=== PATIENT | male | born 1985 | race Caucasian/White ===

== ENCOUNTER 2020-09-08 13:42 | Emergency (ER) | payer OTHER, SELFPAY ==
[2020-09-08 15:21] VITALS: BP 144/82; PULSE 88; RESP 16; TEMP 37.1; O2SAT 98; BMI 42.7
--- NOTE | 2020-09-08 16:19 | ED.WOUNDLAC ---
HPI - Wound/Laceration General Chief Complaint: Wound/Laceration Stated Complaint: LAC Time Seen by Provider: 09/08/20 16:00 Source: patient Mode of arrival: ambulatory Limitations: no limitations History of Present Illness HPI narrative: 35-year-old male presenting to the ED with complaints of a lack to his left hand ring finger at the middle aspect while working on his car cut it with the motor. Denies any other symptoms complaints or concerns at this time. Related Data Previous Rx's Medication Instructions Recorded cephalexin [Keflex] 500 mg PO Q6H 10 Days #40 cap 09/08/20 Allergies Allergy/AdvReac Type Severity Reaction Status Date / Time No Known Allergies Allergy Verified 09/08/20 15:51 [No Known Allergies*] Review of Systems Review of Systems: Constitutional : No Fever, No Chills, Cardiovascular : No Chest Pain, No SOB Respiratory : No Dyspnea Gastrointestinal : No abdominal pain Musculoskeletal : No Joint Swelling Skin : positive skin laceration, No Foreign bodies, No rash, No surrounding erythema Neuro : No Weakness, No Numbness/tingling Psych : No SI/HI/thoughts of self injury Yes all other systems are reviewed and are negative [facility] Past Medical History Attestation statement: The following information was validated with the patient. Medical History No known health problems Social History Social History Alcohol intake: never Smoking Status: Current every day smoker Smoked in Last 30 Days: Yes Use of substances other than those prescribed or required for medical reasons: Yes Substance Use Type: Marijuana Advance Directives: No Advance Directives Information Provided: No Physical Exam Vital Signs: Vital Signs: Vital Signs Temp Pulse Resp BP Pulse Ox 09/08/20 15:21 98.7 F 88 16 144/82 H 98 Body Mass Index 42.7 vital signs have been reviewed as normal and appeared to be correct. Blood pressure normal. Heart rate normal. Respiration rate normal. Temperature normal. Oxygen saturation normal. Appearance: Alert. Oriented X3. No acute distress. Head: Normal external exam. Normocephalic. Atraumatic. No Crockett signs noted. No raccoon eyes noted Eyes: PERRLA. EOMI. Conjunctiva and sclera normal. Eyelids normal. ENT: EAC normal. TM's Normal. Pharynx normal. Uvula midline. Moist mucous membranes. No trismus noted. No drooling noted. No muffled voice noted. Neck: Normal inspection. Neck supple. FROM. No adenopathy. Thyroid Normal. No meningeal signs. No neck mass noted. CVS: Normal heart rate and rhythm. Heart sound normal. No murmurs noted. Pulses normal throughout. Respiratory: No respiratory distress. Painless inspiration. Breath sounds normal. No wheezes/rales/rhonchi noted. Chest nontender. No accessory muscle usage noted or decreased air movement noted. Abdomen: Soft and nontender. Bowel sounds normal in all 4 quadrants. No distention noted. No organomegaly noted. No visible injury noted. Back: No CVA tenderness. Full range of motion noted. Skin: Skin warm and dry. Normal skin color. Normal skin turgor. No rashes/lesions noted. 1 cm superficial laceration to left ring finger. Patient noted to have grease all over his hands. No foreign bodies or drainage or active bleeding noted at this time. Extremities: No lower extremity edema. Extremities exhibit normal range of motion. Extremities nontender. tendon exam wnl to all fingers. Neuro: Oriented X 3. No motor deficit. No sensory deficit. Reflexes normal. Procedures Laceration Laceration 1: Site: hand Side (If applicable): left Size (cm): 1 Description: linear Depth: simple, single layer Local Anesthetic: lidocaine 1% Amount of anesthesia used (mL): 3 Pre-repair: wound explored, irrigated extensively and deep structures intact Skin layer closed with: nylon Size (cm): 4-0 Number of sutures: 3 Technique: simple, interrupted Discharge Plan Discharge Clinical Impression: Laceration Patient Disposition: Home, Self-Care Instructions: Laceration (ED) Prescriptions: New cephalexin [Keflex] 500 mg capsule 500 mg PO Q6H 10 Days Qty: 40 RF: 0 Referrals: Stephany Pollard PA [Emergency Midlevel Provider] - 10 days (for suture removal ) Print Language: Micronesian
[2020-09-08] MEDS: Lidocaine HCl 1 % MPF 5 ML VIAL SUBCUT (16:37)
== END 2020-09-08 16:40 | disposition home or self-care (01) ==
PROVIDERS: Emergency Provider Emergency Medicine
DX: S61.412A Laceration without foreign body of left hand, initial encounter (principal); W45.8XXA Other foreign body or object entering through skin, initial encounter; Y93.9 Activity, unspecified; Y92.015 Private garage of single-family (private) house as the place of occurrence of the external cause; Y99.9 Unspecified external cause status
CPT/HCPCS: 12001; 90471; 90715; 99284